=== PATIENT | male | born 1995 | race Caucasian/White ===

== ENCOUNTER 2016-11-14 09:54 | Emergency (ER) | payer SELFPAY ==
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
[2016-11-14 10:36] LABS: AUTOMATED NEUTROPHIL # 8.3 TH/MM3 (1.8-7.7); BASOPHIL # 0.1 TH/MM3 (0-0.2); BASOPHIL % 0.8 % (0.0-2.0); EOSINOPHIL # 0.2 TH/MM3 (0-0.4); EOSINOPHIL % 1.6 % (0.0-4.0); HEMATOCRIT 46.7 % (39.0-51.0); HEMO FLAGS DIFF FINAL; LYMPHOCYTE # 2.6 TH/MM3 (1.0-4.8); MEAN CELL VOLUME 81.7 FL (80.0-100.0); MEAN CORPUSCULAR HEMOGLOBIN 28.9 PG (27.0-34.0); MEAN CORPUSCULAR HGB CONC 35.3 % (32.0-36.0); MONO % 6.5 % (0.0-8.0); NEUT % 69.1 % (16.0-70.0); PLATELET COUNT 332 TH/MM3 (150-450); RED BLOOD COUNT 5.72 MIL/MM3 (4.50-5.90); RED CELL DISTRIBUTION WIDTH 12.6 % (11.6-17.2)
[2016-11-14 10:55] LABS: ANION GAP 8 MEQ/L (5-15); AST (GOT) 16 U/L (15-39); BICARBONATE 28.2 MEQ/L (21.0-32.0); BLOOD UREA NITROGEN 14 MG/DL (7-18); CHLORIDE 102 MEQ/L (98-107); GLOMERULAR FILTRATION RATE 90 ML/MIN (>89); POTASSIUM 4.1 MEQ/L (3.5-5.1); SODIUM (NA) 138 MEQ/L (136-145)
[2016-11-14 10:56] LABS: ALT (GPT) 22 U/L (9-52)
[2016-11-14 10:59] LABS: ALKALINE PHOSPHATASE 69 U/L (45-117); TOTAL BILIRUBIN ADULT 0.4 MG/DL (0.2-1.0)
[2016-11-14 11:03] LABS: AMPHETAMINE, URINE NEG (NEG); BARBITURATES, URINE NEG (NEG); COCAINE, URINE POS (NEG)
[2016-11-14 11:57] VITALS: BP 135/72; TEMP 98
[2016-11-14] MEDS ORDERED: PROZ20CA11 PO (12:59)
[2016-11-14] MEDS ORDERED: TRAZ100T6 PO (12:59)
[2016-11-14] MEDS ORDERED: BUSP10TA PO (12:59)
[2016-11-14 14:00] VITALS: BP 128/60; PULSE 120; RESP 18; O2SAT 99
[2016-11-14 18:00] VITALS: BP 140/72; PULSE 86; RESP 18
[2016-11-14] MEDS ORDERED: diphenhydrAMINE HCL 50 MG CAP PO ONE (21:15)
[2016-11-14 23:07] VITALS: BP 117/71; PULSE 85; RESP 18; O2SAT 97
[2016-11-15 02:30] VITALS: BP 116/56; PULSE 90; RESP 18; O2SAT 99
[2016-11-15 06:54] VITALS: BP 123/70; PULSE 84; RESP 18; O2SAT 98
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
[2016-11-16] MEDS ORDERED: TYLE325T PO (12:30)
== END 2016-11-15 09:00 | disposition home or self-care (01) ==
LOC: NEPC 09:54 → NEPJ 11-15 09:00
DX: F43.20 Adjustment disorder, unspecified (principal); F19.10 Other psychoactive substance abuse, uncomplicated; F14.10 Cocaine abuse, uncomplicated; F11.10 Opioid abuse, uncomplicated; F31.9 Bipolar disorder, unspecified
CPT/HCPCS: 80053; 80307; 85025; 99285; Q0163

== ENCOUNTER 2016-11-16 09:29 | Emergency (ER) | payer OTHER ==
[~2016-11-16] VITALS: Ht 172.7 cm; Wt 100.0 kg
[~2016-11-16 09:29] MED LIST: BUSP10TA PO; PROZ20CA11 PO; TRAZ100T6 PO
[2016-11-16 09:31] VITALS: BP 147/91; PULSE 128; RESP 20; TEMP 97.8; O2SAT 98
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
[2016-11-16] MEDS ORDERED: DIAZEPAM 5 MG TAB PO ONE (12:00)
[2016-11-16] MEDS ORDERED: KETOROLAC TROMETHAMINE 30 MG/ML (IVP) VIAL IV PUSH ONE (12:00)
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
[2016-11-16] MEDS ORDERED: TYLE325T PO (12:30)
== END 2016-11-16 13:13 | disposition home or self-care (01) ==
LOC: NEPC 09:29
DX: S00.01XA Abrasion of scalp, initial encounter (principal); M25.512 Pain in left shoulder; S09.90XA Unspecified injury of head, initial encounter; S80.212A Abrasion, left knee, initial encounter; S80.211A Abrasion, right knee, initial encounter; F17.210 Nicotine dependence, cigarettes, uncomplicated; V43.62XA Car passenger injured in collision with other type car in traffic accident, initial encounter; Y93.89 Activity, other specified; Y92.410 Unspecified street and highway as the place of occurrence of the external cause; Y99.8 Other external cause status
CPT/HCPCS: 70450; 72125; 73030; 96374; 99285; J1885; L0150